=== PATIENT | male | born 1985 | race Caucasian/White ===

== ENCOUNTER 2022-02-10 08:02 | Day surgery (SDC) | payer BC ==
[2022-02-09 15:29] LABS: Absolute Lymphocytes (CBC) 1.3 K/uL (0.7-4.9); Hematocrit 43.1 % (39.6-49.0); Lymphocytes % 25.1 % (15.3-44.8); MCV 86.7 fL (80-100); MPV 7.5 fL (7.6-11.3); RBC Red Blood Cell Count 4.97 M/uL (4.33-5.43)
[2022-02-09 15:44] LABS: Potassium 4.3 mmol/L (3.5-5.1)
[2022-02-09 15:50] LABS: SARS-CoV-2 Antigen Rapid Res Negative (Negative)
[2022-02-10] MEDS ORDERED: Ringers Lactate 1,000 ML IV ONE (08:25)
[2022-02-10] MEDS ORDERED: CEFAZOLIN SODIUM 1 GM/VIAL ONE (08:26)
[2022-02-10] MEDS ORDERED: ROCURONIUM 50 MG/5 ML VIAL IV ONE (09:30)
[2022-02-10] MEDS ORDERED: FENTANYL CITR 100 MCG/2 ML ONE (09:30)
[2022-02-10] MEDS ORDERED: propofoL 200 MG/20 ML VIAL IV ONE (09:30)
[2022-02-10] MEDS ORDERED: MIDAZOLAM HCL 2 MG/2 ML INJ ONE (09:30)
[2022-02-10] MEDS ORDERED: dexAMETHasone 10 MG/ML VIAL ONE (09:30)
[2022-02-10] MEDS ORDERED: LIDOCAINE 1% MPF 5 ML VIAL ONE (09:31)
[2022-02-10] MEDS ORDERED: KETOROLAC 30 MG/ML INJ ONE (09:31)
[2022-02-10] MEDS ORDERED: ONDANSETRON 4 MG/2 ML VIAL ONE (09:31)
--- NOTE | 2022-02-10 10:32 | P.BOP ---
Preoperative diagnosis: incarcerated tender supraumbilical ventral hernia Postoperative diagnosis: same Primary procedure: Laparoscopic repair incarcerated supraumbilical ventral hernia with mesh Patient Service Coordinator: Zoila Nina ([place]) Estimated blood loss: <10cc Specimen: sac Findings: incarcerated omentum Anesthesia: General Complications: None Drain(s): Other Implants: ventralex mesh Transferred to: Recovery Room Condition: Good
[2022-02-10] MEDS ORDERED: GLYCOPYRROLATE 0.2 MG/ML SYR ONE (10:38)
[2022-02-10] MEDS ORDERED: NEOSTIGMINE 1 MG/ML -10 ML VIAL ONE (10:43)
[2022-02-10] MEDS ORDERED: HYDRALAZINE HCL 20 MG/ML VIAL ONE (11:10)
[2022-02-10] MEDS ORDERED: HYDROMORPHONE HCL 1 MG/ML INJ ONE (11:21)
[2022-02-10 11:42] VITALS: BP 155/80; TEMP 96.8; O2SAT 98
--- NOTE | 2022-02-10 13:27 | DS ---
Date of Discharge: 02/10/2022 Diagnosis: Incarcerated tender supraumbilical ventral hernia. Procedure: Laparoscopic repair of incarcerated supraumbilical ventral hernia with mesh. Disposition: Home. Activity: As tolerated. No heavy lifting. Plan: Follow up in my office in 1 week. Call for appointment at [phone]. Keep area dry for 48 konrad rs and then may shower. Keep dressings intact. The mesh that we used in that area is Ventralex mesh . TUAN/PEBBLES Voice ID: [id number] Report ID: [id number]
--- NOTE | 2022-02-10 13:27 | OP ---
Date of Procedure: 02/10/2022 Surgeon: Donovan Chau MD Agricultural Technical Officer: PABLO Atkins. Preoperative Diagnosis: Incarcerated tender supraumbilical ventral hernia. Postoperative Diagnosis: Incarcerated tender supraumbilical ventral hernia. Procedure: Laparoscopic repair of incarcerated supraumbilical ventral hernia with mesh. Estimated Blood Loss: Less than 10 mL. Specimen: Hernia sac. Findings: Incarcerated omentum and a supraumbilical ventral hernia. Complications: None. Indication: This is the case of a 37-year-old patient, who comes with a very tender hernia just abov e the umbilicus in the ventral region. He is not able to reduce that anymore. He wants that repaire d. The benefits, alternatives, and risks of laparoscopic possible open repair of incarcerated suprau mbilical ventral hernia with possible mesh fully explained, which include, but not limited to infecti on, bleeding, damage to adjacent structures, anesthesia complication, recurrence, CO and even . He also understands this may not relieve any symptoms. He might need more than one surgical interve ntion. He understands we may be using mesh in that region. The pros and cons of mesh use were discu ssed with the patient and all the questions were answered to his satisfaction and he signed a consent . The area of concern, the maximum tenderness were marked by me and the patient in the holding room. Procedure In Detail: The patient was brought to the operating room, placed in supine position. Anes thesia was done without complication. Abdominal area was prepped and draped in the usual sterile fas hion. Local anesthesia was applied followed by sharp incision of the skin. Incision was carried kristan n to fascia. We made the incision in the supraumbilical region where the maximum tenderness is and i ndeed we found the person to have hernia with the hard incarcerated omentum. We released the hernia sac. We have to remove part of the fatty tissue from that region and allow the omentum to be reduced after adhesions were removed. The rest of the omentum looks viable. We checked for hemostasis at a ll time. Hernia sac was removed. Then, we evaluated the fascial edges. It looks thin and friable. So, I believe this patient will benefit from a mesh to reinforce the area. At that moment, I procee ded to place a [place] trocar through the supraumbilical region and obtained pneumoperitoneum. I plac ed a 5 mm trocar on the left and right side of the abdomen, allowed me to put a 5 mm camera through i t and evaluate the center. We proceeded to clean the area of falciform ligament away from the area o f the defect. This allowed me to put a mesh in an anatomical position flat against the peritoneum. After that, I carefully placed a Ventralex mesh through the trocar. The trocar was removed. The mes h lies against the abdominal wall. The strap was full as we secured that with SorbaFix. The straps were then removed. We further secured the mesh to the anterior abdominal wall to diminish any chance of intestines being trapped in between. After that, we closed the fascial defect the best we can ap proximate with #1 Vicryl in a rhpjoi-[id number]-nbxik fashion multiple times. We checked once again from ins randa and checked the area omentum and looks intact with no bleeding. Checked also the anterior abdomi nal wall and the mesh looked nice and flat. At that moment, I proceeded to deflate pneumoperitoneum, removed the trocars. Then after that, I closed the subcutaneous tissue with 3-0 chromic and skin in a subcuticular fashion. Sponge count, instrument counts correct. The patient tolerated the procedu re well. The patient was sent to recovery in stable condition. TUAN/PEBBLES Voice ID: [id number] Report ID: [id number]
== END 2022-02-10 12:22 | disposition home or self-care (01) ==
LOC: OR 08:02
PROVIDERS: ATTEND Surgery
PROC: 0WUF4JZ Supplement Abdominal Wall with Synthetic Substitute, Percutaneous Endoscopic Approach (ICD-10-PCS; principal; 2022-02-10 10:15)
DX: K43.6 Other and unspecified ventral hernia with obstruction, without gangrene (principal); Z20.822 Contact with and (suspected) exposure to COVID-19
CPT/HCPCS: 85025; 80048; 36415; 88302; 87811; 49653; J0360; J2704; J2710; J2250; J3010; J1100; J1170; J7120; J2405; J0690